=== PATIENT | female | born 1955 | race Caucasian/White ===

== ENCOUNTER 2018-05-29 17:19 | Inpatient (IN) | payer BC ==
[~2018-05-29] VITALS: Ht 160 cm; Wt 66.2 kg
--- NOTE | 2018-05-29 17:21 | NUR ---
Dr. thomasfs in room with patient, bipap available and being set up for use.
[2018-05-29] MEDS ORDERED: CefTRIAXone 2gm/D5W 50ml 50 ML IV ONE (17:25)
[2018-05-29] MEDS ORDERED: magnesium 2GM in 50ml NS 50 ML IV ONE (17:25)
[2018-05-29] MEDS ORDERED: ipratropium 0.5 MG/2.5ML nebule IH ONE (17:25)
[2018-05-29] MEDS ORDERED: azithromycin/NS 500mg/250ml 250 ML IV ONE (17:25)
[2018-05-29] MEDS ORDERED: albuterol 2.5 MG/3 ML nebule CONTNEB PRN (17:25)
[2018-05-29] MEDS ORDERED: methylPREDNISolone sod succ 125mg/2ml vial IV ONE (17:25)
[2018-05-29] MEDS: nitroGLYCERIN-Tridil 50MG/D5W 250 ML IV PRN ×2 (17:35→18:04)
--- NOTE | 2018-05-29 17:40 | NUR ---
Nitroglycerin being administered by Dr. Childers first dose at 1735- 1000 mcg iv once 1737- 1,000 mcg IV once 1740- 2,000 mcg IV once
--- NOTE | 2018-05-29 17:43 | NUR ---
Dr. manriquez administered 2000 mcg of IV nitroglycermia.
[2018-05-29 17:45] LABS: BASOPHILS # (AUTO) 0.1 X10'3 (0-0.2); BASOPHILS % (AUTO) 0.9 % (0-1); EOSINOPHILS # (AUTO) 0.4 X10'3 (0-0.9); EOSINOPHILS % (AUTO) 2.8 % (0-6); HEMATOCRIT 59.5 % (35.0-45.0); LYMPHOCYTES # (AUTO) 6.4 X10'3 (1.1-4.8); LYMPHOCYTES % (AUTO) 46.5 % (21-51); MEAN CORPUSCULAR HEMOGLOBIN 34.1 PG (27.0-31.0); MEAN CORPUSCULAR HGB CONC 33.1 g/dL (33.0-36.5); MEAN PLATELET VOLUME 9.4 FL (7.4-10.4); MONOCYTES # (AUTO) 1.1 X10'3 (0-0.9); MONOCYTES % (AUTO) 7.7 % (2-12); NEUTROPHILS # (AUTO) 5.8 X10'3 (1.8-7.7); NEUTROPHILS % (AUTO) 42.1 % (42-75); PLATELET COUNT 175 X10'3 (140-440); RED BLOOD COUNT 5.78 X10'6 (4.20-5.60); RED CELL DISTRIBUTION WIDTH 14.9 % (11.5-14.5); WHITE BLOOD COUNT 13.8 X10'3 (4.5-11.0)
[2018-05-29] MEDS ORDERED: hydrALAZINE 20mg/ml inj. IV ONE (17:45)
[2018-05-29] MEDS ORDERED: nitroGLYCERIN 0.4mg/hour patch TD ONE (17:45)
[2018-05-29 17:48] LABS: HEMOGLOBIN 19.7 g/dl (12.0-16.0)
--- NOTE | 2018-05-29 17:49 | NUR ---
Nitroglycerin administered by Dr. Childers at 1745 -1000 mcg IV and at 1748 IV 2000 mcg nitroglycerin
[2018-05-29 17:50] LABS: ABG BASE EXCESS -6.9 mmol/L (-2.0-3.0); ABG HCO3 23.4 mmol/L (22.0-26.0); ABG OXYGEN SATURATION 90.6 % (95-98); ABG PCO2 (T) 64.9 mmHg (32.0-45.0); ABG PH (T) 7.174 (7.350-7.450); ABG PO2 (T) 70.6 mmHg (83-108); FCOHb 5.5 % (0.5-1.5); FMetHb 0.3 % (0.3-1.12); FO2Hb 85.3 % (94-100); MINUTE VOLUME 30 L/min; RESPIRATORY RATE 18 b/min; RESPIRATORY RATE (OBSERVED) 25 b/min; TOTAL HEMOGLOBIN 19.9 G/dl (12.0-16.0)
[2018-05-29] MEDS ORDERED: morphine 2 MG/ML inj. syringe IV ONE (17:50)
[2018-05-29] MEDS ORDERED: ondansetron/PF 4mg/2ml inj IV ONE (17:50)
[2018-05-29] MEDS ORDERED: LORazepam 2 mg/ml vial IV ONE ×2 (17:50→19:25)
[2018-05-29 17:52] LABS: ALANINE AMINOTRANSFERASE 14 U/L (12-78); ALBUMIN 3.6 G/DL (3.4-5.0); ALBUMIN/GLOBULIN RATIO 0.9 (1.1-1.5); ALKALINE PHOSPHATASE 96 IU/L (46-116); ANION GAP 13 (8-16); ASPARTATE AMINO TRANSFERASE 19 U/L (10-37); BILIRUBIN,TOTAL 0.4 MG/DL (0.1-1.0); BLOOD UREA NITROGEN 19 MG/DL (7-18); BUN/CREATININE RATIO 15.6 (6.6-38.0); CALCIUM 9.5 MG/DL (8.5-10.1); CHLORIDE 100 MMOL/L (99-107); CREATININE 1.22 MG/DL (0.40-0.90); GLUCOSE 333 MG/DL (70-104); SODIUM 139 MMOL/L (135-145); TOTAL PROTEIN 7.8 G/DL (6.4-8.2); eGFR 45 ML/MIN
--- NOTE | 2018-05-29 17:53 | NUR ---
Xray in progress.
[2018-05-29] MEDS ORDERED: normal saline 1000ML IV soln IVB ONE (17:55)
[2018-05-29] MEDS ORDERED: nitroGLYCERIN-Tridil 50MG/D5W 250 ML IV PRN (17:56)
[2018-05-29 17:59] LABS: MAGNESIUM 2.1 MG/DL (1.5-2.4)
[2018-05-29 18:08] LABS: D-DIMER 6.77 MG/L FEU (0-0.50); INR 1.2 INR; PARTIAL THROMBOPLASTIN TIME 29 SECONDS (22-32); PROTHROMBIN TIME 11.7 SECONDS (9.0-12.0)
[2018-05-29] MEDS ORDERED: enoxaparin 100mg/ml syringe SUBCUT ONE (18:15)
[2018-05-29] MEDS ORDERED: iohexol 350MG/ML 100ml bottle IV ONE (18:18)
[2018-05-29 19:16] LABS: ABG BASE EXCESS -4.7 mmol/L (-2.0-3.0); ABG OXYGEN SATURATION 99.4 % (95-98); ABG PCO2 (T) 55.7 mmHg (32.0-45.0); ABG PH (T) 7.247 (7.350-7.450); ABG PO2 (T) 370.2 mmHg (83-108); ALLEN'S TEST Positive; FCOHb 4.1 % (0.5-1.5); FMetHb 0.4 % (0.3-1.12); FO2Hb 94.9 % (94-100); MINUTE VOLUME 26 L/min; PATIENT TEMPERATURE 36.2; RESPIRATORY RATE (OBSERVED) 33 b/min; TOTAL HEMOGLOBIN 17.8 G/dl (12.0-16.0)
[2018-05-29] MEDS ORDERED: HYDROmorphone inj. 0.5 MG/0.5 ML DISP.SYRIN IV ONE (19:25)
[2018-05-29 19:41] LABS: CLARITY,URINE CLEAR (Clear); COLOR,URINE YELLOW (Yellow); GLUCOSE, URINE 250 mg/dl (Neg); KETONES,URINE NEGATIVE (Neg); LEUKOCYTE ESTERASE ,URINE NEGATIVE (Neg); NITRITES, URINE NEGATIVE (Neg); OCCULT BLOOD,URINE NEGATIVE (Neg); PROTEIN,URINE 100 mg/dl (Neg); UROBILINOGEN,URINE 0.2 E.U/dL (0.2-1.0)
[2018-05-29 19:47] LABS: UA COLLECTION TYPE FOLEY CATH
[2018-05-29 19:48] LABS: BACTERIA,URINE FEW /HPF (Neg); RBC,URINE 0-2 /HPF (0-2); SQUAMOUS EPITHELIAL CELL,UR FEW /LPF (FEW); WBC,URINE 0-4 /HPF (0-4)
[2018-05-29] MEDS ORDERED: morphine 4 MG/ML inj SYRINge IV PRN (20:15)
[2018-05-29] MEDS ORDERED: dextrose ORAL solution 15 GM/59 ML bottle PO PRN ×2 (20:15)
[2018-05-29] MEDS ORDERED: ondansetron/PF 4mg/2ml inj IV PRN (20:15)
[2018-05-29] MEDS ORDERED: dextrose 50%-water 50ml dispensing syringe IV PRN ×3 (20:15)
[2018-05-29] MEDS ORDERED: bisacodyl 10mg suppository rectal RC PRN (20:15)
[2018-05-29] MEDS ORDERED: haloperidol lactate 5mg/ml inj IM PRN (20:15)
[2018-05-29] MEDS ORDERED: thiamine 100mg/ml 2ml inj. IV ONE (20:15)
[2018-05-29] MEDS ORDERED: MESSAGE TO PHARMACY PO ONE (20:15)
[2018-05-29] MEDS ORDERED: LORazepam 2 mg/ml vial IV PRN ×2 (20:15)
[2018-05-29] MEDS ORDERED: potassium Cl 20 mEq SR tablet PO PRN (20:15)
[2018-05-29] MEDS ORDERED: haloperidol 5mg tablet PO PRN (20:15)
[2018-05-29] MEDS ORDERED: furosemide 10 MG/1 ML 10ml inj IV ONE (20:15)
[2018-05-29] MEDS ORDERED: ipratropium 0.5 MG/2.5ML nebule IH PRN (20:15)
[2018-05-29] MEDS ORDERED: glucagon, human recombinant 1mg kit SUBCUT PRN (20:15)
[2018-05-29] MEDS ORDERED: acetaminophen 325mg tablet PO PRN ×2 (20:15)
[2018-05-29] MEDS ORDERED: potassium Cl 40MEQ/NS 500ml 500 ML IV PRN ×2 (20:15)
[2018-05-29 20:58] LABS: AMYLASE 57 U/L (25-115); LIPASE 250 U/L (73-393)
[2018-05-29 21:01] LABS: HEMOGLOBIN A1C 5.9 % (4.5-6.2)
--- NOTE | 2018-05-29 21:23 | NUR ---
CALLED REPORT TO CLYDE ON ICU, PT WILL BE TRANSPORTED TO FLOOR ON NON-REBREATHER, PT BELONGINGS IN BAG, PT HAS PURSE THAT WILL FOLLOW PT TO THE FLOOR.
--- NOTE | 2018-05-29 21:30 | NUR ---
I have received report from Morgan LESLIE and had the opportunity to ask questions and assume patient care.
[2018-05-29 22:00] VITALS: BP 146/80
--- NOTE | 2018-05-29 22:00 | NUR ---
PT arrived to unit via gurney on non-rebreather with 8L of O2. VSS, O2 sat >92%. PT transferred to bed via sideboard and placed on bedside monitor. PIV x3, all SL. PT c/o pain, received 0.5mg of Dilaudid in ED. Will verify orders. Bed is locked and low. Call light is within reach. Will continue to monitor.
[2018-05-29] MEDS: HYDROcodone/acetaminophen 10/325mg tab PO PRN (22:12)
[2018-05-29 23:00] VITALS: BP 148/81
[2018-05-29] MEDS: ipratropium/albuterol 3ml nebule NEB SCH (23:17)
[2018-05-29] MEDS: insulin glargine (Lantus) pen - multi-dose SQ SCH (23:54)
[2018-05-29] MEDS: insulin Lispro (HumaLOG) vial - multi-dose SQ SCH (23:55)
[2018-05-30] VITALS (24 sets, daily range): BP systolic 114–177; BP diastolic 55–82
--- NOTE | 2018-05-30 | NUR ---
[place] given and effective. PT resting with no s.s of distress noted at this time. VSS. PT receiving 4L of O2 to NC, tolerating well, O2 sat > 92%. Bed is locked and low. Call light is within reach. Will continue to monitor.
[2018-05-30 00:44] LABS: URINE HCG NEGATIVE (NEG)
[2018-05-30 00:55] LABS: URINE AMPHETAMINE SCREEN NEGATIVE (Neg); URINE BARBITUATE SCREEN NEGATIVE (Neg); URINE BENZODIAZEPINES SCREEN NEGATIVE (Neg); URINE CANNABINOID SCREEN NEGATIVE (Neg); URINE COCAINE SCREEN NEGATIVE (Neg); URINE METHADONE SCREEN NEGATIVE (Neg); URINE OPIATE SCREEN NEGATIVE (Neg); URINE PHENCYCLIDINE SCREEN NEGATIVE (Neg)
[2018-05-30] MEDS: HYDROcodone/acetaminophen 10/325mg tab PO PRN (02:33)
[2018-05-30] MEDS: methylPREDNISolone sod succ/PF 40mg inj. IV SCH ×4 (02:33→19:08)
[2018-05-30] MEDS ORDERED: labetalol 20mg/4ml (5mg/ml) syringe IV PRN (02:50)
--- NOTE | 2018-05-30 06:40 | NUR ---
Problems reprioritized. Patient report given, questions answered & plan of care reviewed with Cherry LESLIE.
[2018-05-30 06:57] LABS: INR 1.1 INR; PROTHROMBIN TIME 11.2 SECONDS (9.0-12.0)
[2018-05-30 07:03] LABS: BASOPHILS % (AUTO) 0.1 % (0-1); EOSINOPHILS % (AUTO) 0 % (0-6); HEMATOCRIT 49.8 % (35.0-45.0); HEMOGLOBIN 16.8 g/dl (12.0-16.0); LYMPHOCYTES # (AUTO) 0.7 X10'3 (1.1-4.8); LYMPHOCYTES % (AUTO) 3.5 % (21-51); MEAN CORPUSCULAR HEMOGLOBIN 33.7 PG (27.0-31.0); MEAN CORPUSCULAR HGB CONC 33.8 g/dL (33.0-36.5); MEAN CORPUSCULAR VOLUME 99.5 FL (78-98); MEAN PLATELET VOLUME 9.7 FL (7.4-10.4); MONOCYTES # (AUTO) 0.5 X10'3 (0-0.9); MONOCYTES % (AUTO) 2.6 % (2-12); NEUTROPHILS # (AUTO) 17.7 X10'3 (1.8-7.7); NEUTROPHILS % (AUTO) 93.8 % (42-75); PLATELET COUNT 152 X10'3 (140-440); RED CELL DISTRIBUTION WIDTH 14.3 % (11.5-14.5); WHITE BLOOD COUNT 18.9 X10'3 (4.5-11.0)
[2018-05-30 07:06] LABS: ALANINE AMINOTRANSFERASE 22 U/L (12-78); ALBUMIN 3.3 G/DL (3.4-5.0); ALBUMIN/GLOBULIN RATIO 0.9 (1.1-1.5); ALKALINE PHOSPHATASE 63 IU/L (46-116); ANION GAP 10 (8-16); ASPARTATE AMINO TRANSFERASE 48 U/L (10-37); BILIRUBIN,TOTAL 0.5 MG/DL (0.1-1.0); BLOOD UREA NITROGEN 18 MG/DL (7-18); BUN/CREATININE RATIO 22.5 (6.6-38.0); CALCIUM 8.7 MG/DL (8.5-10.1); CHLORIDE 100 MMOL/L (99-107); GLUCOSE 149 MG/DL (70-104); MAGNESIUM 1.9 MG/DL (1.5-2.4); PHOSPHORUS 3.2 MG/DL (2.3-4.5); POTASSIUM 3.4 MMOL/L (3.5-5.1); SODIUM 139 MMOL/L (135-145); TOTAL CARBON DIOXIDE 29.4 MMOL/L (24-32); TOTAL PROTEIN 6.9 G/DL (6.4-8.2); eGFR 73 ML/MIN
[2018-05-30] MEDS: ipratropium/albuterol 3ml nebule NEB SCH ×3 (07:35→19:59)
[2018-05-30] MEDS: aspirin 81mg tablet.DR PO SCH (07:40)
[2018-05-30] MEDS: docusate sod 100mg capsule PO SCH ×2 (07:41→19:10)
[2018-05-30] MEDS: famotidine 20mg tablet PO SCH ×2 (07:42→19:11)
[2018-05-30] MEDS: HYDROcodone/acetaminophen 5mg/325mg tablet PO PRN ×3 (07:42→19:10)
[2018-05-30] MEDS: folic acid 1mg tablet PO SCH (07:42)
[2018-05-30] MEDS: nicotine 21mg patch - 24 hr TD SCH (07:43)
[2018-05-30] MEDS: atenolol 50mg tablet PO SCH (07:43)
[2018-05-30] MEDS ORDERED: K, MAG and/or Phos replacement - Verify level? MC SCH (08:00)
[2018-05-30] MEDS ORDERED: furosemide 40mg/4ml inj IV SCH (08:00)
[2018-05-30] MEDS ORDERED: thiamine 100mg tablet PO SCH (08:00)
[2018-05-30] MEDS ORDERED: multivitamins, therapeutics tablet PO SCH (08:00)
[2018-05-30] MEDS ORDERED: nitroGLYCERIN 0.4mg/hour patch TD SCH (08:00)
[2018-05-30] MEDS: potassium Cl 20 mEq SR tablet PO PRN ×3 (08:17→19:11)
[2018-05-30] MEDS: heparin, porcine 5000 units/ml vial SQ SCH ×2 (08:17→19:12)
[2018-05-30] MEDS: insulin Lispro (HumaLOG) vial - multi-dose SQ SCH ×3 (08:34→19:14)
[2018-05-30 09:21] LABS: PLATELET ESTIMATE NORMAL; TOTAL CELLS COUNTED 100
[2018-05-30] MEDS ORDERED: ATEN-169 PO (11:44)
[2018-05-30] MEDS ORDERED: CefTRIAXone inj 2,000 MG in dextrose 5%-water 50ml 50 ML IV SCH (18:00)
[2018-05-30] MEDS ORDERED: azithromycin/NS 500mg/250ml 250 ML IV SCH (18:00)
--- NOTE | 2018-05-30 18:39 | NUR ---
Patient in room CICU 2007. I have received report from FRANCISCO LESLIE and had the opportunity to ask questions and assume patient care.
[2018-05-30] MEDS: lactobacillus rhamnosus 10,000 MMU CELLS/CAPSULE PO SCH (19:10)
[2018-05-30] MEDS: nitroGLYCERIN 0.4mg/hour patch TD SCH (19:12)
[2018-05-30] MEDS: LORazepam 1 MG tablet PO PRN (19:38)
--- NOTE | 2018-05-30 20:30 | NUR ---
pt has been very agitated since I arrived, hyperfocusing on IVs and catheter, not being careful about trying to avoid pulling on any of her lines despite frequent reminders and education. pt continually saying her IVs are swollen and bruised, demanded that another nurse come assess them. medical charge entry specialist came to assess and assured pt both IVs flush beautifully and are working great. admin ativan per orders, explained med to pt and she was in agreement with taking. pt has been moving constantly, I believe BP will go down now with nitro patch and because pt is slightly more settled in bed. if BP is high at next hour will administer PRN BP med
--- NOTE | 2018-05-30 20:44 | NUR ---
pt pulled out her IVs continually trying to walk around room with all lines connected. pt pulling away from me forcefully and screaming in my face. nonemergent security called, they came and talked to her. pt still fidgeting in bed. notified battery charger conveyor line, told to call compounding and finishing supervisor for possible sitter. not one available at this time
[2018-05-30] MEDS: insulin glargine (Lantus) pen - multi-dose SQ SCH (21:00)
--- NOTE | 2018-05-30 21:37 | NUR ---
pt has calmed down some, resting on side. prosper removed per pt request, probably safer. pt used the commode shortly after removal. pt is refusing to have her blood sugar checked or have any insulin, asked pt 3 times if she was sure she wanted to refuse, she said "I'm not taking any more meds" Addendum: 05/30/18 at 2148 by [place] Rodríguez RN also of note, patient has been refusing to put on her oxygen since dinner. spO2 90-94% RA
--- NOTE | 2018-05-30 23:10 | NUR ---
pt woke up, assisted pt to commode. pt took off BP cuff and refused to put it back on, pulling arm away from me roughly, yelling that I can put it back on when she wakes up. pt refusing ativan or putting oxygen back on
[2018-05-31] MEDS: methylPREDNISolone sod succ/PF 40mg inj. IV SCH ×2 (02:00→09:29)
[2018-05-31 04:00] VITALS: BP 175/68
--- NOTE | 2018-05-31 04:10 | NUR ---
pt woke up, agitated, pulling at lines, yelling at staff. sitter at bedside now. asked pt if she needs pain or anxiety med. refusing all meds Addendum: 05/31/18 at 0445 by Jamaica Rodríguez RN pt also refusing oxygen at this time
--- NOTE | 2018-05-31 05:42 | NUR ---
while I was in with another pt, apparently this pt behavior escalated with fire extinguisher charger and sitter present. pt was attempting to walk out while still connected to monitor and was getting tripped up in wires, also was trying to take pills out of an aspirin bottle that she pulled out of her purse. the pt is continually yelling, aggressive, and not excepting assistance including medications. she says she does not want to be charged for meds when she has her own. I explained to her that's not how it works here and we cant allow her to do that. pt is angry about having a sitter. pt is currently sitting in her chair and as of now she has agreed to stay until the doctor comes around.
[2018-05-31 06:13] LABS: BASOPHILS # (AUTO) 0.2 X10'3 (0-0.2); BASOPHILS % (AUTO) 0.7 % (0-1); EOSINOPHILS % (AUTO) 0 % (0-6); HEMATOCRIT 49.5 % (35.0-45.0); HEMOGLOBIN 16.4 g/dl (12.0-16.0); LYMPHOCYTES % (AUTO) 4.3 % (21-51); MEAN CORPUSCULAR HEMOGLOBIN 33.4 PG (27.0-31.0); MEAN CORPUSCULAR HGB CONC 33.2 g/dL (33.0-36.5); MEAN CORPUSCULAR VOLUME 100.7 FL (78-98); MEAN PLATELET VOLUME 10.1 FL (7.4-10.4); MONOCYTES # (AUTO) 0.9 X10'3 (0-0.9); MONOCYTES % (AUTO) 4.1 % (2-12); NEUTROPHILS # (AUTO) 20.9 X10'3 (1.8-7.7); NEUTROPHILS % (AUTO) 90.9 % (42-75); PLATELET COUNT 142 X10'3 (140-440); RED BLOOD COUNT 4.92 X10'6 (4.20-5.60); RED CELL DISTRIBUTION WIDTH 14.2 % (11.5-14.5)
[2018-05-31 06:23] LABS: INR 1.1 INR; PROTHROMBIN TIME 10.9 SECONDS (9.0-12.0)
--- NOTE | 2018-05-31 06:24 | NUR ---
Problems reprioritized. Patient report given, questions answered & plan of care reviewed with DIEGO LESLIE.
[2018-05-31] MEDS: HYDROcodone/acetaminophen 5mg/325mg tablet PO PRN (06:47)
[2018-05-31] MEDS: LORazepam 1 MG tablet PO PRN (06:47)
[2018-05-31 06:51] LABS: ALANINE AMINOTRANSFERASE 41 U/L (12-78); ALBUMIN 3.1 G/DL (3.4-5.0); ALBUMIN/GLOBULIN RATIO 0.8 (1.1-1.5); ALKALINE PHOSPHATASE 56 IU/L (46-116); ANION GAP 10 (8-16); ASPARTATE AMINO TRANSFERASE 141 U/L (10-37); BILIRUBIN,TOTAL 0.7 MG/DL (0.1-1.0); BLOOD UREA NITROGEN 20 MG/DL (7-18); BUN/CREATININE RATIO 26.3 (6.6-38.0); CALCIUM 9.7 MG/DL (8.5-10.1); CHLORIDE 104 MMOL/L (99-107); CREATININE 0.76 MG/DL (0.40-0.90); GLUCOSE 155 MG/DL (70-104); MAGNESIUM 1.9 MG/DL (1.5-2.4); PHOSPHORUS 2.2 MG/DL (2.3-4.5); POTASSIUM 3.8 MMOL/L (3.5-5.1); SODIUM 140 MMOL/L (135-145); TOTAL CARBON DIOXIDE 25.8 MMOL/L (24-32); TOTAL PROTEIN 6.8 G/DL (6.4-8.2); eGFR 77 ML/MIN
[2018-05-31 06:53] LABS: TOTAL CELLS COUNTED 100
[2018-05-31 06:55] LABS: LARGE PLATELETS FEW; PLATELET ESTIMATE NORMAL
[2018-05-31 07:00] VITALS: BP 175/68
--- NOTE | 2018-05-31 07:00 | NUR ---
Plan of care is discussed with patient. She said she will be going home "no matter what". Cont to not call for assistance when getting out of bed. Fall precautions reviewed with patient.
[2018-05-31 08:00] VITALS: BP 136/58
[2018-05-31] MEDS: folic acid 1mg tablet PO SCH (08:00)
[2018-05-31] MEDS: docusate sod 100mg capsule PO SCH (08:00)
[2018-05-31] MEDS: nicotine 21mg patch - 24 hr TD SCH (08:00)
[2018-05-31] MEDS: lactobacillus rhamnosus 10,000 MMU CELLS/CAPSULE PO SCH (08:00)
[2018-05-31] MEDS: aspirin 81mg tablet.DR PO SCH (08:00)
--- NOTE | 2018-05-31 08:00 | NUR ---
attempted to administer AM medications. She is refusing to take anything except her B/P med. all medications are revived with her and why she is taking them.
[2018-05-31] MEDS: ipratropium/albuterol 3ml nebule NEB SCH (08:12)
[2018-05-31 09:00] VITALS: BP 145/63
[2018-05-31] MEDS: nitroGLYCERIN 0.4mg/hour patch TD SCH (09:29)
[2018-05-31] MEDS: atenolol 50mg tablet PO SCH (09:33)
[2018-05-31 10:00] VITALS: BP 149/60
[2018-05-31] MEDS ORDERED: ASPI-1071 PO (10:44)
[2018-05-31] MEDS ORDERED: NICO-687 TD (10:44)
[2018-05-31] MEDS ORDERED: IPRA3AMP9 NEB (10:44)
[2018-05-31] MEDS ORDERED: FAMO20TA8 PO (10:44)
--- NOTE | 2018-05-31 11:02 | NUR ---
Received report from Yenny and problems reviewed.
[2018-05-31] MEDS ORDERED: lactulose 20gm/30ml cup PO PRN (20:15)
[2018-06-02 09:17] LABS: ALLEN'S TEST Positive
== END 2018-05-31 11:45 | disposition left against medical advice (07) | DRG 193 ==
LOC: ER 17:20 → CICU 2S 20:12
PROVIDERS: ATTEND Internal Medicine Critical Care Medicine
PROC: 5A09357 Assistance with Respiratory Ventilation, Less than 24 Consecutive Hours, Continuous Positive Airway Pressure (ICD-10-PCS; principal; 2018-05-29)
PROC: B32T1ZZ Computerized Tomography (CT Scan) of Left Pulmonary Artery using Low Osmolar Contrast (ICD-10-PCS; 2018-05-29)
PROC: B3201ZZ Computerized Tomography (CT Scan) of Thoracic Aorta using Low Osmolar Contrast (ICD-10-PCS; 2018-05-29)
PROC: B32S1ZZ Computerized Tomography (CT Scan) of Right Pulmonary Artery using Low Osmolar Contrast (ICD-10-PCS; 2018-05-29)
DX: J18.9 Pneumonia, unspecified organism (principal); J81.0 Acute pulmonary edema; J96.00 Acute respiratory failure, unspecified whether with hypoxia or hypercapnia; J44.1 Chronic obstructive pulmonary disease with (acute) exacerbation; I16.1 Hypertensive emergency; J44.0 Chronic obstructive pulmonary disease with (acute) lower respiratory infection; F17.210 Nicotine dependence, cigarettes, uncomplicated; I10 Essential (primary) hypertension; Z53.21 Procedure and treatment not carried out due to patient leaving prior to being seen by health care provider; D75.1 Secondary polycythemia; I73.9 Peripheral vascular disease, unspecified; Z90.710 Acquired absence of both cervix and uterus; Z72.89 Other problems related to lifestyle; Z79.82 Long term (current) use of aspirin
CPT/HCPCS: 36415; 36600; 71045; 71275; 80053; 80305; 81001; 81025; 82150; 82803; 82948; 83036; 83605; 83690; 83735; 83880; 84100; 84145; 84484; 85018; 85025; 85379; 85610; 85730; 87040; 87070; 93005; 93306; 93922; 93925; 93970; 94640; 94660; 94760; 96365; 96372; 96375; 97116; 97161; 97530; 99291; G0378; J0360; J0456; J0696; J1170; J1644; J1650; J1815; J1940; J2060; J2270; J2405; J2920; J2930; J3411; J3475; J3490; J7060; Q9967